=== PATIENT | female | born 1935 | race Caucasian/White ===

== ENCOUNTER → 2019-02-11 | Outpatient (CLI) | payer MEDICARE ==
[~2019-02-11] MED LIST: AMLO2.5T5 PO; CELE100C PO; CEPH-368 PO; DOCU-180 PO; DORZ10DR26 OP; GABA-826 PO; HYDR25TA6 PO; IRBE300T16 PO; LATA2.5D3 EACHEYE; MULT-658 PO; MULT-709 PO; OMEP-110 PO; POTA20TA14 PO; SERT50TA28 PO; VALS320T2 PO; Vitamin C; symbicort INH; vitamin B complex PO; vitamin D
[2019-02-11 09:41] LABS: BASOPHILS # (AUTO) 0.05 x10^3/uL (0-0.1); BASOPHILS % (AUTO) 1 % (0-1); EOSINOPHILS # (AUTO) 0.22 x10^3/uL (0-0.4); EOSINOPHILS % (AUTO) 3 % (1-7); LYMPHOCYTES # (AUTO) 1.61 x10^3/uL (1-3.4); LYMPHOCYTES % (AUTO) 20 % (22-44); MD NO; MEAN CORPUSCULAR HEMOGLOBIN 25.6 pg (27.0-34.8); MEAN CORPUSCULAR HGB CONC 31.8 g/dL (32.4-35.8); MEAN CORPUSCULAR VOLUME 80.5 fL (80-100); MEAN PLATELET VOLUME 7.7 fL (7.4-10.4); MONOCYTES # (AUTO) 0.75 x10^3/uL (0.2-0.8); MONOCYTES % (AUTO) 9 % (2-9); NEUTROPHILS # (AUTO) 5.46 x10^3/uL (1.8-6.8); NEUTROPHILS % (AUTO) 67 % (42-75); PLATELET COUNT 296 x10^3/uL (130-400); RED BLOOD COUNT 4.85 x10^6/uL (3.82-5.3); RED CELL DISTRIBUTION WIDTH 15.8 % (9.6-15.2)
[2019-02-11 09:46] LABS: ALANINE AMINOTRANSFERASE 32 U/L (12-78); ALBUMIN 3.8 g/dL (3.4-5.0); ANION GAP 6 mmol/L (5-15); CALCIUM 9.2 mg/dL (8.5-10.1); CHLORIDE 104 mmol/L (98-107)
[2019-02-11 09:48] LABS: ALKALINE PHOSPHATASE 111 U/L (45-117); BILIRUBIN,TOTAL 0.5 mg/dL (0.2-1.0); CREATININE 0.91 mg/dL (0.55-1.02); TOTAL PROTEIN 7.7 g/dL (6.4-8.2)
== END | disposition home or self-care (01) ==
LOC: STAR 08:05
PROVIDERS: ATTEND Otolaryngology
DX: Z01.818 Encounter for other preprocedural examination (principal); D11.0 Benign neoplasm of parotid gland
CPT/HCPCS: 36415; 80053; 85025; 93005

== ENCOUNTER 2019-02-15 13:11 | Day surgery (SDC) | payer MEDICARE ==
[~2019-02-15] VITALS: Ht 165.1 cm; Wt 87.8 kg
[~2019-02-15 13:11] MED LIST changes: -CEPH-368 PO
[2019-02-15] MEDS ORDERED: LACTATED RINGERS 1,000 ML IV ONE (13:46)
[2019-02-15 13:59] VITALS: BP 154/81
[2019-02-15] MEDS ORDERED: NEOSTIGMINE 1 MG/ML, 10ML ONE (14:08)
[2019-02-15] MEDS ORDERED: ROCURONIUM 10MG/ML,5ML ONE (14:08)
[2019-02-15] MEDS ORDERED: CEFAZOLIN 1,000 MG ONE (14:08)
[2019-02-15] MEDS ORDERED: GLYCOPYRROLATE 0.2MG/1ML, 5ML ONE (14:08)
[2019-02-15] MEDS ORDERED: PROPOFOL 10 MG/ML, 20ML ONE (14:08)
[2019-02-15] MEDS ORDERED: DEXAMETHASONE 4 MG/ML, 1ML ONE (14:08)
[2019-02-15] MEDS ORDERED: SODIUM CHLORIDE 0.9% PF 10ML ONE (14:08)
[2019-02-15] MEDS ORDERED: ONDANSETRON 2MG/ML, 2ML ONE (14:08)
[2019-02-15] MEDS ORDERED: LIDOCAINE-MPF 2% ,5ML ONE (14:08)
[2019-02-15] MEDS ORDERED: SUCCINYLCHOLINE 20 MG/ML, 10ML ONE (14:08)
[2019-02-15] MEDS ORDERED: FENTANYL PF 100 MCG/2ML ONE ×4 (14:14→17:33)
[2019-02-15] MEDS ORDERED: PROMETHAZINE 25 MG/ML, 1ML IV PRN (14:30)
[2019-02-15] MEDS ORDERED: EPHEDRINE 50 MG/ML, 1ML IVPush PRN (14:30)
[2019-02-15] MEDS ORDERED: ONDANSETRON 2MG/ML, 2ML IV PRN ×2 (14:30→22:30)
[2019-02-15] MEDS ORDERED: LABETALOL 5MG/ML, 20ML IV PRN (14:30)
[2019-02-15] MEDS ORDERED: FENTANYL PF 100 MCG/2ML IV PRN (14:30)
[2019-02-15] MEDS ORDERED: MEPERIDINE/PF 25MG/ML,1ML IVPush PRN (14:30)
[2019-02-15] MEDS ORDERED: OXYcodone 5 MG/5 ML ORAL.SOL UDC PO PRN (14:30)
[2019-02-15] MEDS ORDERED: HYDROmorphone 2 MG/ML, 1ML IVPush PRN (14:30)
[2019-02-15] MEDS ORDERED: hydrALAzine 20 MG/ML, 1ML IV PRN (14:30)
[2019-02-15] MEDS ORDERED: MUPIROCIN OINT 2%, 22GM ONE (15:33)
[2019-02-15] MEDS ORDERED: LIDOCAINE 1%-EPI 1:100K, 20ML ONE (15:34)
[2019-02-15] MEDS ORDERED: KETOROLAC 30 MG/1 ML ONE (16:12)
[2019-02-15] MEDS ORDERED: hydrALAzine 20 MG/ML, 1ML ONE ×2 (17:42→20:20)
[2019-02-15 20:15] VITALS: BP 122/60
[2019-02-15] MEDS ORDERED: OXYcodone IR 5MG TABLET PO PRN (22:00)
[2019-02-15] MEDS ORDERED: MORPHINE SULFATE 4 MG/ML, 1ML IV PRN (22:00)
[2019-02-15] MEDS ORDERED: ACETAMINOPHEN 325 MG TABLET PO PRN (22:00)
[2019-02-15] MEDS ORDERED: LACTATED RINGERS 1,000 ML IV SCH (22:30)
[2019-02-16 01:23] VITALS: BP 123/54
[2019-02-16 04:13] VITALS: BP 123/57
[2019-02-16] MEDS ORDERED: OMEPRAZOLE 20 MG CAPSULE.DR PO SCH (06:00)
[2019-02-16 07:12] VITALS: BP 94/53
[2019-02-16] MEDS ORDERED: SODIUM CHLORIDE FLUSH 3ML SYRINGE IVF SCH (09:00)
[2019-02-16] MEDS ORDERED: POTASSIUM CHLORIDE 20 MEQ TAB.ER.PRT PO SCH (09:00)
[2019-02-16] MEDS ORDERED: SERTRALINE 50MG TABLET PO SCH (09:00)
[2019-02-16] MEDS ORDERED: VALSARTAN 320 MG TABLET PO SCH (09:00)
[2019-02-16] MEDS ORDERED: AMLODIPINE 2.5 MG TABLET PO SCH (09:00)
[2019-02-16] MEDS ORDERED: HYDROCHLOROTHIAZIDE 25 MG TABLET PO SCH (09:00)
[2019-02-16] MEDS ORDERED: CEPH-368 PO (09:34)
[2019-02-16 09:36] LABS: ANION GAP 7 mmol/L (5-15); CHLORIDE 101 mmol/L (98-107); CREATININE 1.09 mg/dL (0.55-1.02)
[2019-02-16 10:08] VITALS: BP 105/53
[2019-02-16] MEDS ORDERED: GABAPENTIN 100 MG CAPSULE PO SCH (21:00)
== END 2019-02-16 10:39 | disposition home or self-care (01) ==
LOC: OR 13:11 → 4NE 21:15 → UNDOADMIN 21:38 → OR 21:38 → DCLOUNGE 02-16 10:30 → 4NE 02-16 10:30 → OR 02-16 10:39 → UNDODISIN 02-16 10:48
PROVIDERS: ATTEND Otolaryngology
DX: K11.8 Other diseases of salivary glands (principal); C07 Malignant neoplasm of parotid gland; K11.23 Chronic sialoadenitis; I10 Essential (primary) hypertension; K21.9 Gastro-esophageal reflux disease without esophagitis; F32.9 Major depressive disorder, single episode, unspecified; Z79.899 Other long term (current) drug therapy
CPT/HCPCS: 36415 ×2; 42415; 80048 ×2; 88307 ×2; C1729 ×2; C1760; G0378; J0330; J0360; J0690 ×2; J1100 ×2; J1885 ×2; J2405 ×2; J2704 ×2; J2710; J3010 ×2; J3490 ×2; J7120

== ENCOUNTER → 2019-03-12 | Outpatient (CLI) | payer MEDICARE ==
[~2019-03-12] MED LIST changes: +CEPH-368 PO
== END | disposition home or self-care (01) ==
LOC: ROC 07:58
PROVIDERS: ATTEND Radiology Radiation Oncology
DX: C07 Malignant neoplasm of parotid gland (principal); M19.90 Unspecified osteoarthritis, unspecified site; F32.9 Major depressive disorder, single episode, unspecified; I10 Essential (primary) hypertension; Z90.89 Acquired absence of other organs
CPT/HCPCS: 99214; G0463

== ENCOUNTER 2019-04-12 07:54 | Outpatient (CLI) | payer MEDICARE ==
[~2019-04-12 07:54] MED LIST changes: -IRBE300T16 PO; +IRBE300T8 PO
== END 2019-04-12 23:59 | disposition home or self-care (01) ==
LOC: ROC 07:54
PROVIDERS: ATTEND Radiology Radiation Oncology
DX: Z02.9 Encounter for administrative examinations, unspecified (principal)

== ENCOUNTER 2019-06-21 08:29 | Outpatient (CLI) | payer MEDICARE | END 2019-06-21 23:59 | disposition home or self-care (01) | LOC: ROC 08:29 | PROVIDERS: ATTEND Radiology Radiation Oncology | DX: Z02.9 Encounter for administrative examinations, unspecified (principal) ==

== ENCOUNTER 2019-11-08 07:17 | Outpatient (CLI) | payer MEDICARE | END 2019-11-08 23:59 | disposition home or self-care (01) | LOC: ROC 07:17 | PROVIDERS: ATTEND Radiology Radiation Oncology | DX: C07 Malignant neoplasm of parotid gland (principal); Z79.899 Other long term (current) drug therapy | CPT/HCPCS: 99213; G0463 ==

== ENCOUNTER → 2019-11-17 | Outpatient (CLI) | payer MEDICARE ==
[~2019-11-17] MED LIST changes: +OMNIPAQUE 350 MG/ML, 100ML BOTTLE ONE
== END | disposition home or self-care (01) ==
LOC: CFH 12:32
PROVIDERS: ATTEND Radiology Radiation Oncology
DX: C07 Malignant neoplasm of parotid gland (principal); I10 Essential (primary) hypertension
CPT/HCPCS: 70491; 82565; Q9967

== ENCOUNTER → 2020-05-10 | Outpatient (CLI) | payer MEDICARE ==
[~2020-05-10] MED LIST changes: -LATA2.5D3 EACHEYE; +LATA2.5D4 EACHEYE; -OMNIPAQUE 350 MG/ML, 100ML BOTTLE ONE
== END | disposition home or self-care (01) ==
LOC: ROC 11:05
PROVIDERS: ATTEND Radiology Radiation Oncology
DX: Z08 Encounter for follow-up examination after completed treatment for malignant neoplasm (principal); C07 Malignant neoplasm of parotid gland
CPT/HCPCS: 99212; G0463

== ENCOUNTER 2020-08-01 20:08 | Emergency (ER) | payer MEDICARE ==
[~2020-08-01] VITALS: Ht 165.1 cm; Wt 71.4 kg
[~2020-08-01 20:08] MED LIST changes: -DOCU-180 PO; +DOCU-183 PO
[2020-08-01 20:26] VITALS: BP 181/83
[2020-08-01] MEDS ORDERED: NEOSPORIN OINT. PKT 1 PACKET ONE (22:24)
== END 2020-08-01 22:52 | disposition home or self-care (01) ==
LOC: ED 22:30
DX: S61.501A Unspecified open wound of right wrist, initial encounter (principal); M25.551 Pain in right hip; R51.9 Headache, unspecified; I10 Essential (primary) hypertension; W18.30XA Fall on same level, unspecified, initial encounter; Y93.89 Activity, other specified; Y92.410 Unspecified street and highway as the place of occurrence of the external cause; Y99.8 Other external cause status
CPT/HCPCS: 70450; 72125; 99285